=== PATIENT | male | born 1980 | race Caucasian/White ===

== ENCOUNTER 2017-10-19 12:07 | Emergency (ER) | payer SELFPAY ==
[~2017-10-19] VITALS: Ht 182.9 cm; Wt 82.0 kg
[~2017-10-19 12:07] MED LIST: IBUP-238 PO; SULF1TAB47 PO; Z.0.NO CURRENT MEDS
[2017-10-19 12:11] VITALS: BP 124/57; PULSE 74; RESP 21; TEMP 97.8; O2SAT 100
--- NOTE | 2017-10-19 13:08 | PD ---
Physical Exam Time Seen by Provider: 13:07 Narrative I was asked to repair the laceration of the right anterior thigh. Data Data Last Documented VS Vital Signs Date Time Temp Pulse Resp B/P (MAP) Pulse Ox O2 Delivery O2 Flow Rate FiO2 10/19/17 12:11 97.8 74 21 124/57 (79) 100 Orders Orders Lidocai-Epi 1%-1:100,000 Inj (Xylocaine- (10/19/17 13:15) MDM Supervised Visit with A[facility]: No Narrative Course I was asked to repair the laceration of the right anterior thigh. See my procedure note for laceration repair. Procedures Procedure Narrative LACERATION LOCATION: Distal aspect of anterior right thigh LENGTH: 5 cm NUMBER OF STITCHES/MINH: 8 minh REPAIR: The area of the laceration was prepped with Betadine and sterilely draped. The laceration was infiltrated with 1% lidocaine. The wound was copiously irrigated and explored without evidence of foreign body, tendon injury or neurovascular injury. The wound was closed using minh. This was a single layer repair. A sterile dressing was applied. The patient was advised to keep the dressing clean and dry. Patient tolerated the procedure well. Kelly Higgins Oct 19, 2017 13:08
--- NOTE | 2017-10-19 13:14 | PD ---
HPI Chief Complaint: Laceration/Skin Injury Time Seen by Provider: 12:57 Travel History International Travel<30 days: No Contact w/Intl Traveler<30days: No Traveled to known affect area: No History of Present Illness HPI This patient presents for a laceration. Duration 1 hour. Severity is moderate. He was doing some grinding in the magazine grinder loader slipped and cut into his right thigh. His tetanus is up-to-date. No other complaints. [facility] Social History Alcohol Use: No Tobacco Use: Yes Substance Use: No Allergies-Medications (Allergen,Severity, Reaction): Coded Allergies: No Known Allergies (Unverified , 01/15/12) Reported Meds & Prescriptions Reported Meds & Active Scripts Active Bactrim Ds (Trimethoprim/Sulfamethoxazole) Tab 1 Tab PO BID 10 Days Motrin (Ibuprofen) 800 Mg Tab 800 Mg PO TIDPRN FOR PAIN Reported No Current Meds (Miscellaneous Medication) Misc Review of Systems General / Constitutional: No: Fever HENT: No: Headaches Cardiovascular: No: Chest Pain or Discomfort Respiratory: No: Cough Physical Exam Narrative SKIN: Focused skin assessment reveals no rash or ulcers. Skin is warm and dry. Palpation shows no induration or nodules. Psych: Normal mood and affect. Normal insight and judgment. Right thigh: He has a 6 cm laceration. No active bleeding. No joint involvement Data Data Last Documented VS Vital Signs Date Time Temp Pulse Resp B/P (MAP) Pulse Ox O2 Delivery O2 Flow Rate FiO2 10/19/17 12:11 97.8 74 21 124/57 (79) 100 Orders Orders Lidocai-Epi 1%-1:100,000 Inj (Xylocaine- (10/19/17 13:15) MDM Medical Decision Making Medical Screen Exam Complete: Yes Emergency Medical Condition: Yes Medical Record Reviewed: Yes Differential Diagnosis Laceration, contusion, abrasion Narrative Course I have reviewed the patient's electronic medical record. FIDE Mendoza is repairing the laceration Diagnosis Primary Impression: Laceration of thigh, right Qualified Codes: S71.111A - Laceration without foreign body, right thigh, initial encounter Additional Instructions: The patient was advised to follow up with their physician and return if they worsen. Med/Other Pt SpecificInfo: Other Disposition: 01 DISCHARGE HOME Condition: Stable Rudy Morgan MD Oct 19, 2017 13:14
[2017-10-19] MEDS ORDERED: LIDOCAINE 1%/EPINEPHrine 1:100,000 SOLN 20 ML VIAL INFIL ONE (13:15)
== END 2017-10-19 13:56 | disposition home or self-care (01) ==
LOC: NEPD 12:07
DX: S71.111A Laceration without foreign body, right thigh, initial encounter (principal); W29.8XXA Contact with other powered hand tools and household machinery, initial encounter
CPT/HCPCS: 12002